=== PATIENT | male | born 2000 | race African-American/Black ===

== ENCOUNTER 2019-12-20 11:23 | Emergency (ER) | payer OTHER ==
[2019-12-20 11:35] VITALS: BP 151/76
--- NOTE | 2019-12-20 11:42 | ER Document Report ---
HPI - HPI Time Seen by Provider: 12/20/19 11:33 Notes: 19-year-old male presents emergency room for evaluation for STDs because he was told by an old girlfriend that she has gonorrhea and she thinks that he gave it to her. Denies any dysuria, penile drainage, urinary retention, testicular ruthie n, groin pain. Denies any fevers or chills. Patient states he has had unprotected sexual intercourse and would like to be evaluated for chlamydia or gonorrhea today. Discussed with patient that we are not testing for full panel STD such as syphilis, hepatitis C, HPV, trichomonas etc. that he does need to follow-up with the health department. Denies any lesions around his meatus. MEDICATIONS: I agree with the patient medications as charted by the RN. ALLERGIES: I agree with the allergies as charted by the RN. PAST MEDICAL HISTORY/PAST SURGICAL HISTORY: Reviewed and agree as charted by RN. SOCIAL HISTORY: Reviewed and agree as charted by RN. FAMILY HISTORY: No significant familial comorbid conditions directly related to patient complaint EXAM: Reviewed vital signs as charted by RN. REVIEW OF SYSTEMS:reviewed vital signs by RN CONSTITUTIONAL : Denies fever, chills, or sweats. Denies recent illness. EENT: Denies eye, ear, throat, or mouth pain or symptoms. Denies nasal or sinus congestion or discharge. Denies throat, tongue, or mouth swelling or difficulty swallowing. CARDIOVASCULAR: Denies chest pain. Denies palpitations or racing or irregular heart beat. Denies ankle edema. RESPIRATORY: Denies cough, cold, or chest congestion. Denies shortness of breath, difficulty breathing, or wheezing. GASTROINTESTINAL: Denies abdominal pain or distention. Denies nausea, vomiting, or diarrhea. Denies blood in vomitus, stools, or per rectum. Denies black, tarry stools. Denies constipation. GENITOURINARY: Denies difficulty urinating, painful urination, burning, frequency, blood in urine, or discharge. MUSCULOSKELETAL: Denies back or neck pain or stiffness. Denies joint pain or swelling. SKIN: Denies rash, lesions or sores. HEMATOLOGIC : Denies easy bruising or bleeding. LYMPHATIC: Denies swollen, enlarged glands. NEUROLOGICAL: Denies confusion or altered mental status. Denies passing out or loss of consciousness. Denies dizziness or lightheadedness. Denies headache. Denies weakness or paralysis or loss of use of either side. Denies problems with gait or speech. Denies sensory loss, numbness, or tingling. Denies seizures. PSYCHIATRIC: Denies anxiety or stress. Denies depression, suicidal ideation, or homicidal ideation. ALL OTHER SYSTEMS REVIEWED AND NEGATIVE. Dictation was performed using [employer] voice recognition software PHYSICAL EXAMINATION: GENERAL: Well-appearing, well-nourished and in no acute distress. HEAD: Atraumatic, normocephalic. EYES: Pupils equal round and reactive to light, extraocular movements intact, sclera anicteric, conjunctiva are normal. ENT: Nares patent, oropharynx clear without exudates. Moist mucous membranes. NECK: Normal range of motion, supple without lymphadenopathy LUNGS: Breath sounds clear to auscultation bilaterally and equal. No wheezes rales or rhonchi. HEART: Regular rate and rhythm without murmurs ABDOMEN: Soft, nontender, nondistended abdomen. No guarding, no rebound. No masses appreciated. Musculoskeletal: Normal range of motion, no pitting or edema. No cyanosis. NEUROLOGICAL: Cranial nerves grossly intact. Normal speech, normal gait. Normal sensory, motor exams PSYCH: Normal mood, normal affect. SKIN: Warm, Dry, normal turgor, no rashes or lesions noted. Past Medical History - General Information source: Patient - Social History Smoking Status: Unknown if Ever Smoked Family History: Reviewed & Not Pertinent Vertical Provider Document - CONSTITUTIONAL Agree With Documented VS: Yes Exam Limitations: No Limitations General Appearance: WD/WN Course - Re-evaluation Re-evalutation: 12/20/19 11:42 Afebrile vital stable no distress. Nurses notes reviewed. - Vital Signs Vital signs: Temp Pulse Resp BP Pulse Ox 98.7 F 85 16 151/76 H 98 12/20/19 11:27 12/20/19 11:27 12/20/19 11:27 12/20/19 11:27 12/20/19 11:27 Discharge - Discharge Clinical Impression: Exposure to STD Condition: Stable Disposition: HOME, SELF-CARE Additional Instructions: Your chlamydia and gonorrhea results are pending. You have been treated with azithromycin 1 g and Rocephin 250 mg IM for treatment of chlamydia and gonorrhea. Do not engage in sexual intercourse for 7- 10 days after treatement. discussed safe sex, using protection. pt was tx'd for G/C at this visit. Advised to have protected sex always, go to [facility]CP of the [facility] for further blood testing for HIV, hepatitis C, etc. Return immediately for any new or worsening symptoms. Follow up with primary care provider, call tomorrow to make followup appointment. Referrals: DAVON OROZCO MD [ACTIVE STAFF] - Follow up as needed
[2019-12-20] MEDS ORDERED: CEFTRIAXONE INJ 250 MG VIAL IM ONE (11:45)
[2019-12-20] MEDS ORDERED: LIDOCAINE 1% INJ-PF (10 MG/ML) 30 ML SDV INJ ONE (11:45)
[2019-12-20] MEDS ORDERED: AZITHROMYCIN 1 GM SUSP PACKET PO ONE (11:46)
[2019-12-20 11:59] LABS: APPEARANCE,URINE CLEAR; BILIRUBIN,URINE NEGATIVE (NEGATIVE); COLOR,URINE YELLOW; GLUCOSE, URINE NEGATIVE (NEGATIVE); KETONES,URINE NEGATIVE (NEGATIVE); LEUKOCYTE ESTERASE,URINE NEGATIVE (NEGATIVE); NITRITE,URINE NEGATIVE (NEGATIVE); PROTEIN,URINE 30 mg/dL (NEGATIVE); URINE SPECIFIC GRAVITY 1.027
[2019-12-20 13:19] LABS: CHLAM PCR NOT DETECTED (NOT DETECT)
== END 2019-12-20 13:08 | disposition home or self-care (01) ==
LOC: ER 11:23
DX: Z20.2 Contact with and (suspected) exposure to infections with a predominantly sexual mode of transmission (principal)
CPT/HCPCS: 99284; 96372; 81001; 87491; 87591; J3490; Q0144; J0696